=== PATIENT | female | born 1980 | race Caucasian/White ===

== ENCOUNTER 2021-10-12 13:48 | Outpatient (CLI) | payer OTHER | END 2021-10-12 13:58 | disposition home or self-care (01) | LOC: SONOGRAMA 13:48 | PROVIDERS: ATTEND Obstetrics & Gynecology | DX: R10.2 Pelvic and perineal pain (principal); O00.91 Unspecified ectopic pregnancy with intrauterine pregnancy ==

== ENCOUNTER 2021-10-12 23:14 | Inpatient (IN) | payer OTHER ==
[~2021-10-12] VITALS: Ht 157.5 cm; Wt 61.7 kg
== END 2021-10-14 18:58 | disposition home or self-care (01) | DRG 819 ==
LOC: ER 23:14 → OB/GYN 10-13 02:11 → SEC-K 10-13 02:11 → OB/GYN 10-13 08:29
PROVIDERS: ADMIT Obstetrics & Gynecology; ATTEND Obstetrics & Gynecology
PROC: 0UT50ZZ Resection of Right Fallopian Tube, Open Approach (ICD-10-PCS; principal; 2021-10-13 07:00)
DX: O00.101 Right tubal pregnancy without intrauterine pregnancy (principal); Z20.822 Contact with and (suspected) exposure to COVID-19